=== PATIENT | female | born 1990 | race Caucasian/White ===

== ENCOUNTER 2023-02-15 14:21 | Emergency (ER) | payer SELFPAY ==
[2023-02-15 14:22] VITALS: BP 117/91; PULSE 101; RESP 14; TEMP 36.7; O2SAT 99; BMI 30.1
--- NOTE | 2023-02-15 14:47 | CT_ITS ---
WS: [id number] CT HEAD NONCONTRAST HISTORY: seizure TECHNIQUE: Contiguous axial imaging performed through the brain in 2.5 mm imaging. Bone and soft tiss ue windows. Sagittal and coronal reformats reviewed. All CT scans at [facility] use at least one of these dose optimization techniques: automated exposure control; mA and/or kV adjustment per pa tient size (includes targeted exams where dose is matched to clinical indication); or iterative recon struction. DLP: 1084.08 mGy.cm COMPARISON: None available. No acute intracranial hemorrhage, midline shift or mass effect. No atrophy or prior infarcts or herniation. Ventricles: Normal size with no hydrocephalus. Paranasal sinuses: As visualized are clear. Mastoid air cells: Well pneumatized. Calvarium and scalp: Skull is intact with no soft tissue edema or swelling. IMPRESSION: Negative head CT.
[2023-02-15] MEDS: LORazepam 2 mg/mL INJ 1 mL (14:53)
--- NOTE | 2023-02-15 14:53 | W.ED.SEIZURE ---
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 She has had a since 2009 and has not seen a neurologist states she has been under a lot of stress she states her moved out last night she did not sleep well last night per EMS she had 7 seizures in route I came the room patient was tensed and jerking but she is responsive and breathing but will not answer any questions at this time. Patient was given Versed in route Review of Systems General: Reports: ROS unobtainable due to mental status Physical Exam Const: COMMON NORMALS: negative for patient oriented x3 HENMT: COMMON NORMALS: normocephalic and atraumatic HEAD & SCALP: normocephalic and atraumatic Eye: COMMON NORMALS: Equal, round and reactive pupils present and EOMs intact bilaterally PUPIL: Yes Equal, round and reactive pupils present Neck/C-Spine: COMMON NORMALS: full ROM and supple Chest: COMMONS NORMALS: normal inspection of the chest and normal palpation of entire chest wall Resp: COMMON NORMALS: normal respiratory effort, No retractions, No use of accessory muscles and clear to auscultation bilaterally AUSCULTATION: clear to auscultation bilaterally Cardio: COMMON NORMALS: regular rhythm and No murmurs present (Cardio) RATE: tachycardic RHYTHM: regular rhythm GI: COMMON NORMALS: Normal to inspection, nondistended, normoactive bowel sounds present, Soft to palpation, non-tender and no masses PALPATION: Yes Soft to palpation Extremity: COMMON NORMALS: normal to inspection and full ROM Neuro: COMMON NORMALS: moves all extremities; negative for patient oriented x3 Psych: COMMON NORMALS: negative for mental status grossly normal Skin: COMMON NORMALS: no rashes or lesions noted and no wounds GENERAL SKIN EXAM: no rashes or lesions noted Course Vital Signs: Vital signs: Vital Signs Temperature 98.1 F 02/15/23 14:22 Pulse Rate 101 H 02/15/23 14:22 Respiratory Rate 14 02/15/23 14:22 Blood Pressure 117/91 02/15/23 14:22 Pulse Oximetry 99 02/15/23 14:22 Oxygen Delivery Me thod Room Air 02/15/23 14:22 MDM - Seizure MDM Narrative Medical decision making narrative: Patient presents here with a seizure her blood work head CT here are normal she is awake and alert and at her baseline we will start on Keppra and give her follow-up with neurology she is return if worsening she understands agrees to plan. Medical Records Attestation: I reviewed the patient's medical records. Lab Data Attestation: I reviewed the patient's lab results. 02/15/23 14:57 Labs: Laboratory Results Sodium 134 mmol/L (136-145) L 02/15/23 14:57 Potassium 3.4 mmol/L (3.5-5.1) L 02/15/23 14:57 Chloride 102 mmol/L (98-107) 02/15/23 14:57 Carbon Dioxide 20 mmol/L (22-29) L 02/15/23 14:57 Anion Gap 15.4 (5-19) 02/15/23 14:57 BUN 7 mg/dL (6-20) 02/15/23 14:57 Creatinine 0.8 mg/dL (0.5-0.9) 02/15/23 14:57 GFR Calculation 82.1 mL/min (90-130) L 02/15/23 14:57 Glucose 95 mg/dL (65-115) 02/15/23 14:57 Calculated Osmolality 276 mOsm/kg (285-295) L 02/15/23 14:57 Calcium 9.0 mg/dL (8.5-10.5) 02/15/23 14:57 HCG, Qual Negative (Negative) 02/15/23 14:57 All radiology interpretation(s) finalized by discharge Discharge Plan Discharge Patient Disposition: Home Clinical Impression: Generalized seizure Condition: Stable Prescriptions: New levetiracetam [Keppra] 500 mg tablet 500 mg PO BID Qty: 60 0RF No Action Tylenol Ex Str Rapid Release 500 mg Tablet 1,000 mg PO Q6H PRN (Reason: Pain) ibuprofen 200 mg Tablet 400 mg PO Q6H PRN (Reason: Pain) Discharge Orders: Discharge ED (Routine); Ordered 02/15/23 Ordered By: Willi Ballard Referrals: Mio Pro MD [Physician] - 1-3 days Kelsey Dominguez MD [Primary Care Provider] - Discharge Diet: Advance as tolerated Discharge Activity: Resume usual activity Patient Instructions: Recurrent Seizures in Adults (ED) Coding Level of Care Code ED Internal Controls Analyst for Roseann Butt
[2023-02-15] MEDS: levETIRAcetam 750 MG in sodium chloride 0.9% (100 ml) 100 ML 430 MG IV (15:01)
[2023-02-15] MEDS: sodium chloride 0.9% 1,000 ML 999 ML IV (15:07)
--- NOTE | 2023-02-15 15:15 | PC.PHAR ---
pt states she takes no prescription medications-pt states she hasnt used cbd oil since 2020-pt states she use to take seizure medication but not taken for years-
[2023-02-15 15:21] LABS: Anion Gap 15.4 (5-19); Blood Urea Nitrogen 7 mg/dL (6-20); Carbon Dioxide 20 mmol/L (22-29); Chloride 102 mmol/L (98-107); Creatinine Clr Calc Pharmacy 97.4275; Glomerular Filtration Rate 82.1 mL/min (90-130); Glucose 95 mg/dL (65-115); Osmolality Calculated 276 mOsm/kg (285-295); Potassium 3.4 mmol/L (3.5-5.1); Sodium 134 mmol/L (136-145)
[2023-02-15 15:22] LABS: HCG, Serum Qual Negative (Negative)
--- NOTE | 2023-02-15 16:14 | DCPLANNER ---
Sent message to Neurology for follow up with Dr. Pro -Seizures
== END 2023-02-15 16:33 | disposition home or self-care (01) ==
PROVIDERS: Emergency Provider Emergency Medicine; PCP Family Medicine
DX: G40.409 Other generalized epilepsy and epileptic syndromes, not intractable, without status epilepticus (principal)
CPT/HCPCS: 36415; 70450; 80048; 84703; 96374; 99285; J1953; J2060; J7030